=== PATIENT | female | born 1960 | race Caucasian/White ===

== ENCOUNTER → 2017-05-21 | Outpatient (CLI) | payer OTHER | LOC: M.RAD 14:20 | DX: R07.9 Chest pain, unspecified (principal); R07.81 Pleurodynia ==

== ENCOUNTER → 2017-06-24 | Outpatient (CLI) | payer OTHER | LOC: M.RAD 15:18 | DX: M81.8 Other osteoporosis without current pathological fracture (principal); M85.89 Other specified disorders of bone density and structure, multiple sites ==

== ENCOUNTER 2019-10-26 08:17 | Emergency (ER) | payer OTHER ==
[~2019-10-26] VITALS: Ht 162.6 cm; Wt 56.2 kg
[2019-10-26] MEDS ORDERED: ULTRAM 50MG TAB50 MG PO (09:43)
[2019-10-26 09:51] VITALS: BP 116/73
== END 2019-10-26 09:53 | disposition home or self-care (01) ==
LOC: M.ERS 08:17
DX: S62.102A Fracture of unspecified carpal bone, left wrist, initial encounter for closed fracture (principal); Z88.6 Allergy status to analgesic agent; Z88.5 Allergy status to narcotic agent; Z91.041 Radiographic dye allergy status; Z88.8 Allergy status to other drugs, medicaments and biological substances; W18.39XA Other fall on same level, initial encounter; Y93.89 Activity, other specified; Y92.89 Other specified places as the place of occurrence of the external cause; Y99.8 Other external cause status